=== PATIENT | female | born 1975 | race Two or more races ===

== ENCOUNTER 2017-08-09 09:18 | Outpatient (CLI) | payer OTHER | END 2017-08-09 09:25 | disposition home or self-care (01) | LOC: MAMO-SONO 09:18 | DX: Z12.31 Encounter for screening mammogram for malignant neoplasm of breast (principal); N64.89 Other specified disorders of breast; N64.4 Mastodynia; N60.11 Diffuse cystic mastopathy of right breast ==

== ENCOUNTER 2017-08-11 09:14 | Outpatient (CLI) | payer OTHER | END 2017-08-11 14:28 | disposition home or self-care (01) | LOC: MAMO-SONO 09:14 | DX: N64.89 Other specified disorders of breast (principal) ==

== ENCOUNTER 2022-02-20 21:11 | Emergency (ER) | payer OTHER ==
[~2022-02-20] VITALS: Ht 167.6 cm; Wt 66.7 kg
[2022-02-20] MEDS ORDERED: CEPHALEXIN250 M1 PO (23:20)
== END 2022-02-21 00:04 | disposition home or self-care (01) ==
LOC: ER 21:11
DX: S02.2XXA Fracture of nasal bones, initial encounter for closed fracture (principal); W19.XXXA Unspecified fall, initial encounter; Y93.89 Activity, other specified; Y92.9 Unspecified place or not applicable; Y99.9 Unspecified external cause status; S01.21XA Laceration without foreign body of nose, initial encounter